=== PATIENT | female | born 1940 | race Caucasian/White ===

== ENCOUNTER 2023-02-25 14:14 | Emergency (ER) | payer OTHER, MEDICAID ==
[~2023-02-25] VITALS: Ht 152.4 cm; Wt 93.0 kg
[~2023-02-25 14:14] MED LIST: FURO-572 PO; POTA8TAB17 PO; RANI-287 PO; VIC PO
[2023-02-25 14:16] VITALS: BP 138/67; PULSE 90; RESP 16; TEMP 97.9; O2SAT 97
--- NOTE | 2023-02-25 14:16 | NUR ---
marcelino saucedo made aware of pt symptoms.
[2023-02-25 14:34] VITALS: O2SAT 97
[2023-02-25] MEDS ORDERED: MORPHINE SULFATE 4 MG/ML SYR IM ONE (14:45)
[2023-02-25 15:09] LABS: APPEARANCE,URINE CLEAR (CLEAR); BILIRUBIN,URINE NEGATIVE (NEGATIVE); BLOOD, URINE NEGATIVE (NEGATIVE); COLOR,URINE YELLOW (YELLOW); LEUKOCYTE ESTERASE ,URINE NEGATIVE (NEGATIVE); NITRITE, URINE NEGATIVE (NEGATIVE); UGLUCOSE NEGATIVE (NEGATIVE)
--- NOTE | 2023-02-25 15:22 | NUR ---
82 YO F BIB [facility], C/O INTERMITTENT LT FACIAL PAIN /, TINGLING RADIATING TO LT SHOULDER X 15DAYS, WORSE X 3 DAYS. PT DENIES FEVET, CHILLS, NAUSEA, VOMITING, TRAUMA, SOB, CP. PT STATES SHE HAS STROKE A FEW MTHS AGO AND ATTENDING THERAPY TO REGAIN MOTION TO RT SIDE FACE. RT SIDE FACE DROP NOTED, NAD.
[2023-02-25] MEDS ORDERED: ACET-8905 PO (16:39)
[2023-02-25] MEDS ORDERED: IBUP-2213 PO (16:39)
== END 2023-02-25 16:43 | disposition home or self-care (01) ==
LOC: MED 14:14
DX: G50.1 Atypical facial pain (principal); E11.9 Type 2 diabetes mellitus without complications; I10 Essential (primary) hypertension; K21.9 Gastro-esophageal reflux disease without esophagitis; Z79.4 Long term (current) use of insulin; Z79.899 Other long term (current) drug therapy; Z98.890 Other specified postprocedural states
CPT/HCPCS: 70450; 81003; 96372; 99285; J2270